=== PATIENT | male | born 1990 | race African-American/Black ===

== ENCOUNTER 2017-03-08 12:54 | Emergency (ER) | payer MEDICAID ==
[2017-03-08 23:57] LABS: BASOPHILS 0.1 % (0.0-2.0); EOSINOPHILS 3.4 % (0-7); HEMATOCRIT 46.2 % (42.0-54.0); HEMOGLOBIN 15.2 g/dL (13.5-17.5); IMMATURE GRANULOCYTES 0.1 % (0-5); LYMPHOCYTES 29.7 % (15-50); MCH 22.4 pg (26.0-34.0); MCHC 32.9 g/dL (31.0-37.0); MCV 67.9 fL (80.0-100.0); MEAN PLATELET VOLUME 10.7 fL (7.4-10.4); MONOCYTES 8.8 % (2-11); NEUTROPHILS 57.9 % (40-80); PLATELET COUNT 187 10x3/uL (130-400); RDW 14.7 % (11.5-14.5); WBC 6.8 10x3/uL (4.8-10.8)
[2017-03-09 00:07] LABS: CALC OSMOLALITY 283 mosm/kg (275-300); CALCIUM 8.2 mg/dL (8.5-10.1); CHLORIDE - SERUM 104 mmol/L (98-107); CREATININE - SERUM 1.1 mg/dL (0.6-1.3); GLUCOSE 146 mg/dL (74-106); SODIUM 141 mmol/L (136-145); UREA NITROGEN 12 mg/dL (7-18); eGFR NON AFRICAN AMERICAN 87 mL/min (90-120)
== END 2017-03-09 00:20 | disposition home or self-care (01) ==
LOC: D.ER 12:54
PROVIDERS: Emergency Medicine
DX: I10 Essential (primary) hypertension (principal); R60.0 Localized edema